=== PATIENT | male | born 1940 | race Caucasian/White ===

== ENCOUNTER 2020-03-10 08:59 | Day surgery (SDC) | payer MEDICARE, OTHER ==
[2020-03-09 13:15] LABS: ALBUMIN 3.3 G/DL (3.4-5.0); ANION GAP 8 (8-16); BLOOD UREA NITROGEN 10 MG/DL (7-18); BUN/CREATININE RATIO 7.6 (5.4-32.0); CALCIUM 9.2 MG/DL (8.5-10.1); CHLORIDE 104 MMOL/L (99-107); CREATININE 1.32 MG/DL (0.60-1.10); GLUCOSE 98 MG/DL (70-104); POTASSIUM 4.9 MMOL/L (3.5-5.1); SODIUM 137 MMOL/L (135-145); TOTAL CARBON DIOXIDE 25.4 MMOL/L (24-32); eGFR 52 ML/MIN
[2020-03-09 13:19] LABS: BASOPHILS # (AUTO) 0.1 X10'3 (0-0.2); BASOPHILS % (AUTO) 0.9 % (0-1); EOSINOPHILS # (AUTO) 0.1 X10'3 (0-0.9); EOSINOPHILS % (AUTO) 1.5 % (0-6); HEMATOCRIT 42.9 % (42.0-52.0); HEMOGLOBIN 15.2 g/dl (14.0-17.9); LYMPHOCYTES # (AUTO) 1.7 X10'3 (1.1-4.8); MEAN CORPUSCULAR HGB CONC 35.3 g/dL (33.0-36.5); MEAN CORPUSCULAR VOLUME 107.4 FL (78-98); MEAN PLATELET VOLUME 8.1 FL (7.4-10.4); MONOCYTES # (AUTO) 0.6 X10'3 (0-0.9); NEUTROPHILS # (AUTO) 3.8 X10'3 (1.8-7.7); NEUTROPHILS % (AUTO) 60.6 % (42-75); PLATELET COUNT 182 X10'3 (140-440); RED CELL DISTRIBUTION WIDTH 13.3 % (11.5-14.5); WHITE BLOOD COUNT 6.2 X10'3 (4.5-11.0)
[2020-03-10] VITALS (10 sets, daily range): BP systolic 100–132; BP diastolic 58–86
[~2020-03-10] VITALS: Ht 182.9 cm; Wt 85.5 kg
[2020-03-10] MEDS ORDERED: clindamycin-Cleocin 900mg/D5W 50 ML IV ONE (09:30)
[2020-03-10] MEDS ORDERED: normal saline 1000ml 1,000 ML IV PRN (09:30)
[2020-03-10] MEDS ORDERED: midazolam 2 mg/2 ml injection ONE (09:31)
[2020-03-10] MEDS ORDERED: fentaNYL/PF 50MCG/1 ML 2ML syringe ONE (09:31)
[2020-03-10] MEDS ORDERED: clindamycin phosphate 150mg/ml inj. ONE (09:31)
[2020-03-10] MEDS ORDERED: LIDOcaine 1% W/epiNEPHrine 1:100,000 20ml vial ONE ×2 (09:31→10:38)
[2020-03-10] MEDS ORDERED: LISI-600 PO (09:32)
[2020-03-10] MEDS ORDERED: POTA10TA19 PO (09:32)
[2020-03-10] MEDS ORDERED: CARV-50 PO (09:32)
[2020-03-10] MEDS ORDERED: DIGO125T97 PO (09:32)
[2020-03-10] MEDS ORDERED: APIX5TAB3 PO (09:32)
[2020-03-10] MEDS ORDERED: FURO-150 PO (09:32)
[2020-03-10] MEDS ORDERED: normal saline 1000ml 1,000 ML IV SCH ×2 (09:35→12:15)
[2020-03-10 10:10] LABS: PARTIAL THROMBOPLASTIN TIME 27 SECONDS (22-32)
[2020-03-10] MEDS ORDERED: HYDROcodone/acetaminophen 5mg/325mg tablet PO PRN (12:15)
[2020-03-10] MEDS ORDERED: HYDROcodone/acetaminophen 10/325mg tab PO PRN (12:15)
[2020-03-10] MEDS ORDERED: vancomycin/NS 1 GM ADD-VANTAGE 250 ML IV ONE (13:00)
== END 2020-03-10 15:48 | disposition home or self-care (01) ==
LOC: SSTAY O 08:59
PROVIDERS: ATTEND Internal Medicine Cardiovascular Disease
DX: Z45.02 Encounter for adjustment and management of automatic implantable cardiac defibrillator (principal); I42.9 Cardiomyopathy, unspecified; I48.91 Unspecified atrial fibrillation; Z79.01 Long term (current) use of anticoagulants
CPT/HCPCS: 33264; 36415; 80048; 85025; 85610; 85730; 93005; 99152; 99153; C1882; J2250; J3010; J3370; J3490; A4620; A6449